=== PATIENT | female | born 1975 | race Caucasian/White ===

== ENCOUNTER 2018-01-12 09:45 | Emergency (ER) | payer OTHER ==
[~2018-01-12] VITALS: Ht 167.6 cm; Wt 73.5 kg
[2018-01-12 09:53] VITALS: Ht 167.6 cm; Wt 73.5 kg
[2018-01-12 11:48] VITALS: BP 122/78
== END 2018-01-12 11:48 | disposition home or self-care (01) ==
LOC: ED 09:45
DX: O26.891 Other specified pregnancy related conditions, first trimester (principal); R33.9 Retention of urine, unspecified; Z3A.12 12 weeks gestation of pregnancy